=== PATIENT | female | born 1940 ===

== ENCOUNTER 2017-09-14 08:52 | Outpatient (CLI) | payer OTHER ==
[~2017-09-14] VITALS: Ht 160 cm; Wt 76.2 kg
[2017-09-14] MEDS ORDERED: DERMOTIC20 ML OTIC (10:15)
== END 2017-09-14 09:15 | disposition home or self-care (01) ==
LOC: OFIC 805 08:52
DX: J31.0 Chronic rhinitis (principal); R05 Cough; H90.3 Sensorineural hearing loss, bilateral; H61.23 Impacted cerumen, bilateral

== ENCOUNTER 2018-01-18 08:11 | Outpatient (CLI) | payer OTHER ==
[~2018-01-18 08:11] MED LIST: DERMOTIC20 ML OTIC
== END 2018-01-18 08:20 | disposition home or self-care (01) ==
LOC: NUCLEAR 08:11
DX: C34.31 Malignant neoplasm of lower lobe, right bronchus or lung (principal); R91.1 Solitary pulmonary nodule
CPT/HCPCS: 78816; A9552